=== PATIENT | male | born 1965 | race Caucasian/White ===

== ENCOUNTER 2020-12-30 18:15 | Emergency (ER) | payer BC ==
[~2020-12-30] VITALS: Ht 182.9 cm; Wt 102.1 kg
[2020-12-30] MEDS ORDERED: DEXAMETHASONE 4 MG TAB PO STA (18:27)
[2020-12-30] MEDS ORDERED: AZITHROMYCIN 250 MG TAB PO ONE (18:30)
[2020-12-30] MEDS ORDERED: ONDANSETRON HCL 4 MG ORAL DISINTEGRATING TAB PO STA (18:30)
[2020-12-30] MEDS ORDERED: VENTOLIN HFA18 GM INH (20:14)
[2020-12-30] MEDS ORDERED: PREDNISONE20 MG PO (20:14)
[2020-12-30] MEDS ORDERED: AZITHROMYCIN250 MG PO (20:14)
[2020-12-30] MEDS ORDERED: ACETAMINOPHEN 325 MG TAB PO STA (20:16)
[2020-12-30 21:13] VITALS: BP 162/84
== END 2020-12-30 21:15 | disposition home or self-care (01) ==
LOC: ER 18:27
DX: U07.1 COVID-19 (principal); J18.9 Pneumonia, unspecified organism; R50.9 Fever, unspecified; R05 Cough; R53.81 Other malaise
CPT/HCPCS: 71045; 93005; 99283; J8540; Q0162